=== PATIENT | female | born 1980 | race Caucasian/White ===

== ENCOUNTER 2020-10-08 19:49 | Observation (INO) | payer OTHER ==
[~2020-10-08 19:49] MED LIST: Iopamidol 370 76% 100 ML VIAL ONE
[2020-10-08 20:37] LABS: #Basophils 0.1 thou/uL (0.0-0.2); #Eosinphils 0.1 thou/uL (0.0-0.7); #Monocytes 0.7 thou/uL (0.11-0.59); #Neutrophils 4.7 thou/uL (1.40-6.50); %Eosinophils 1.3 % (0.0-10.0); %Lymphocytes 34.8 % (21.0-51.0); %Monocytes 8.5 % (0.0-10.0); %Neutrophils 54.5 % (42.0-75.0); Hemoglobin 13.8 g/dL (12.0-16.0); Mean Corpuscular HGB CONC 33.8 g/dL (32.0-36.0); Mean Corpuscular Hemoglobin 31.8 pg (27.0-31.0); Mean Corpuscular Volume 94.1 fL (78.0-98.0); Mean Platelet Volume 9.3 fL (7.4-10.4); Platelet Count 196 thou/uL (130-400); RBC Distribution Width 11.7 % (11.5-14.5); Red Blood Cell (RBC) Count 4.34 mill/uL (4.20-5.40); White Blood Cell (WBC) Count 8.7 thou/uL (4.8-10.8)
[2020-10-08 20:49] LABS: INR-International Normal Ratio 0.8; PTT 28.8 sec (22.9-36.1); Prothrombin Time 11.3 sec (12.0-14.7)
[2020-10-08 20:56] LABS: ALT (SGPT) 14 U/L (8-55); AST (SGOT) 14 U/L (5-34); Albumin 4.3 g/dL (3.5-5.0); Alkaline Phosphatase 48 U/L (40-110); Anion Gap 14 mmol/L (10-20); BUN (Urea Nitrogen) 11 mg/dL (7.0-18.7); Bilirubin, Total 0.3 mg/dL (0.2-1.2); Calc. Creatinine Clearance 0 mL/min (70-130); Carbon Dioxide 27 mmol/L (22-29); Chloride 104 mmol/L (98-107); Globulin 3.2 g/dL (2.4-3.5); Glucose 107 mg/dL (70-105); Potassium 3.8 mmol/L (3.5-5.1); Protein, Total 7.5 g/dL (6.0-8.3); Sodium 141 mmol/L (136-145)
[2020-10-08 22:18] LABS: Bilirubin Negative (Negative); Blood, Urine Negative (Negative); Clarity Clear (Clear); Glucose, Urine (Dipstick) Normal (Negative); Ketone, Urine Negative (Negative); Leukocyte Negative Leu/uL (Negative); Nitrite Negative (Negative); Protein, Urine (Dipstick) Negative (Neg-Trace); Urobilinogen Normal mg/dL (Less than 2)
[2020-10-08 22:19] LABS: Specific Gravity, Urine 1.059 (1.002-1.036)
--- NOTE | 2020-10-08 22:23 | CT ---
EXAM: Noncontrast CT head CT angiogram head and neck with IV contrast and 3-D reconstructions PROVIDED CLINICAL HISTORY: Left lower extremity numbness and weakness which started one day ago. Dizziness and lightheadedness. History of prior CVA. COMPARISON: None FINDINGS: Noncontrast CT head: There is no evidence of a hemorrhage, acute infarction, mass effect, or midline shift. The ventricula r system is normal in size, shape, and position. Visualized paranasal sinuses and mastoid air cells are clear. Calvarial structures have a normal appearance. There is curvilinear increased density seen in the posterior aspect of the right lobe. This could be related to hemorrhage or less likely mass. CTA head and neck: There is a normal arrangement of the great vessels at the aortic arch which are patent. The innominat e artery and right subclavian artery are patent. Portions of the left subclavian artery are obscured due to dense contrast in adjacent veins limiting adequate evaluation. There is mild atherosc lerotic plaque and narrowing involving the most proximal left subclavian artery. The bilateral common carotid arteries are patent. The left internal carotid artery is patent. The rig ht internal carotid artery demonstrates mild diffuse irregularity and narrowing with at least one area in the upper cervical ICA at the C2-3 level demonstrating findings possibly related to fibromusc ular dysplasia. Areas of narrowing on the right are moderate in severity. No critical stenosis is seen. The vertebral arteries are codominant and patent bilaterally. The basilar artery is patent. Bilateral posterior cerebral arteries are patent The bilateral anterior cerebral and middle cerebral arteries are patent. No intracranial aneurysm is appreciated. IMPRESSION: 1. Generalized diffuse narrowing of the extracranial right internal carotid artery with a segmental a isaías of alternating areas of slight dilatation and narrowing at the C2-3 level. Findings may be related to fibromuscular dysplasia. Vasculitis would be a differential consideration. 2. Patent left internal carotid artery. 3. No focal stenosis or branch occlusion is seen involving the ch[place] of [place] or vertebrobasilar sy stem. 4. No acute intracranial abnormality is demonstrated. 5. Increased density right lobe which could be related to hemorrhage or less likely a mass. 6. Above findings discussed with Dr. De La Rosa on 10/08/2020 2217 hours.
[2020-10-08 22:28] LABS: Medtox Reader # READER 4
[2020-10-08 22:29] LABS: Amphetamine Not Detected (NotDetected); Barbiturates Screen Not Detected (NotDetected); Benzodiazepine Screen Not Detected (NotDetected); Cocaine Metabolite Screen Not Detected (NotDetected); Medtox Control Line Valid? VALID (VALID); Methadone Not Detected (NotDetected); Methamphetamine Not Detected (NotDetected); Opiate Screen Not Detected (NotDetected); Oxycodone Screen Not Detected (NotDetected); Phencyclidine (PCP) Not Detected (NotDetected); THC/Cannabinoid Screen Not Detected (NotDetected); Tricyclic Screen Not Detected (NotDetected)
--- NOTE | 2020-10-08 22:29 | ULT ---
EXAM: Left lower extremity venous Doppler HISTORY: Left lower extremity pain and numbness. FINDINGS: Grayscale, color-flow, Doppler evaluation, spectral analysis of the left lower extremity venous struc tures is performed with 2-D imaging. The left common femoral, superficial femoral, popliteal, posterior tibial, proximal greater saphenous and profunda femoral veins are imaged. There is normal luminal compressibility, flow, and augmentation in the visualized deep venous structu res of the left lower extremity. IMPRESSION: No evidence of a deep vein thrombosis in the visualized deep venous structures left lower extremity.
[2020-10-08] MEDS ORDERED: Ketorolac Tromethamine 30 MG/ML VIAL ONE (22:58)
[2020-10-08] MEDS ORDERED: Nicotine 14 MG PATCH ONE (23:34)
[2020-10-09] MEDS ORDERED: Nicotine 21 MG PATCH TOP SCH (00:15)
[2020-10-09] MEDS ORDERED: Aspirin Chewable 81 MG TAB ONE (00:17)
[2020-10-09] MEDS ORDERED: Acetaminophen 325 MG TAB PO PRN (01:51)
[2020-10-09] MEDS ORDERED: Morphine 2 MG/ML VIAL SLOW IVP PRN (01:51)
[2020-10-09] MEDS ORDERED: Morphine 2 MG/ML VIAL ONE (01:59)
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
[2020-10-09 04:34] LABS: SARS-CoV-2 MS2 Positive; SARS-CoV-2 N Gene Negative; SARS-CoV-2 S Gene Negative; SARS-CoV-2 by NAA Not Detected (NotDetected); SARS-CoV-2 orf1ab Negative
[2020-10-09 04:46] LABS: Cardiac Risk 3.6 (Less than 4.5)
[2020-10-09 05:04] LABS: #Eosinphils 0.1 thou/uL (0.0-0.7); #Monocytes 0.7 thou/uL (0.11-0.59); %Basophils 0.5 % (0.0-1.0); %Eosinophils 1.5 % (0.0-10.0); %Lymphocytes 38.6 % (21.0-51.0); %Monocytes 8.8 % (0.0-10.0); %Neutrophils 50.7 % (42.0-75.0); Hemoglobin 12.8 g/dL (12.0-16.0); Mean Corpuscular HGB CONC 32.4 g/dL (32.0-36.0); Mean Corpuscular Hemoglobin 30.6 pg (27.0-31.0); Mean Corpuscular Volume 94.5 fL (78.0-98.0); Mean Platelet Volume 10.1 fL (7.4-10.4); Platelet Count 170 thou/uL (130-400); RBC Distribution Width 11.8 % (11.5-14.5); Red Blood Cell (RBC) Count 4.18 mill/uL (4.20-5.40); White Blood Cell (WBC) Count 7.9 thou/uL (4.8-10.8)
[2020-10-09] MEDS ORDERED: Acetaminophen/Codeine 30-300mg Tablet ONE ×2 (06:20→11:52)
[2020-10-09] MEDS: Acetaminophen/Codeine 30-300mg Tablet PO PRN ×4 (06:25→21:16)
[2020-10-09] MEDS ORDERED: Diazepam 5 MG TAB ONE ×2 (07:54→13:36)
[2020-10-09] MEDS ORDERED: Diazepam 5 MG TAB PO SCH (08:00)
[2020-10-09] MEDS ORDERED: Enoxaparin Sodium 40 MG/0.4 ML SYRINGE SC SCH (09:00)
--- NOTE | 2020-10-09 09:09 | CT ---
PRELIMINARY REPORT/[facility]/EMERGENCY AFTER HOURS PROCEDURE: Exam: Unenhanced CT lumbar spine History: Patient is a 39 yo F who started having some left leg pain yesterday and woke up this sivakumarnin g having trouble walking. She has not been able to walk all day and her left leg is sensitive to touc h. Comparison: None provided. Findings: Contrast is present within bilateral renal collecting systems. Recommend correlation with recent administration. The paraspinous soft tissues are within normal limits. Prevertebral body hei ghts are preserved. There is anatomic alignment. There is no acute osseous abnormality. Shallow di sc bulge L5-S1 is present. There is no significant stenosis. Remainder of levels are within normal limits. Impression: No acute osseous abnormality. Shallow disc bulge L5-S1. ELECTRONICALLY SIGNED BY: Antonia Jaimes MD Oct 09, 2020 3:45:54 AM MANUFACTURING ADVISOR This report is intended for review by the ordering physician only, in accordance of law. If you recei ve this report in error, please call [facility] at [phone]. FINAL REPORT CT LUMBAR SPINE WITHOUT CONTRAST: Vertebral bodies maintain normal height and alignment. Degenerative disk changes at L5-S1. Broad-ba sed bulge at L5-S1. Disk-osteophyte complex projects into the foraminal zone on the right at L5-S1 r esulting in foraminal narrowing. I am in agreement with the preliminary report. POS: AGW
--- NOTE | 2020-10-09 12:28 | CON ---
NEUROLOGY CONSULTATION DATE OF CONSULTATION: 10/09/2020 REASON FOR CONSULTATION: Stroke/left lower extremity weakness. HISTORY OF PRESENT ILLNESS: Ms. Carter is a 39-year-old female with medical history significant for seizure disorder, CVA with residual left-sided deficits, degenerative joint disease, presented with excruciating left leg pain when she woke up in the morning. She has residual deficits in the left upper extremity, but not worsening at this time. The patient denies nausea, vomiting, headache, chest pain, abdominal pain, double vision, problems with swallowing or speech, or worsening weakness in the left upper extremity. She noted that she was unable to walk throughout all the day. In the emergency room, CT angiogram was done which showed diffuse narrowing of the intracranial right internal carotid artery with segmental area of alternating slight dilatation and narrowing at the C2-C3 level related to fibromuscular dysplasia. The patient received Toradol and aspirin and nicotine patch and she was admitted for further evaluation. The patient also complained of pain in the lower back. She denies any urinary or fecal incontinence. REVIEW OF SYSTEMS: All systems reviewed and were negative except the pertinent positives and negatives mentioned in the HPI. HOME MEDICATIONS: See updated home medication reconciliation list. ACTIVE MEDICATIONS: Morphine and Nicotine. PAST MEDICAL HISTORY: Seizure disorder, chronic lower back pain, prior CVA. PAST SURGICAL HISTORY: Tubal ligation, D and C. SOCIAL HISTORY: The patient lives with family. She is a current smoker. Denies illegal drug abuse. She uses alcohol. ALERGIES: ASA PHYSICAL EXAMINATION: 130/70 18 88 General Appearance: awake alert Eye: PERRL, anicteric sclera ENT: normocephalic atraumatic, no oropharyngeal lesions Neck: supple, symmetric, no thyromegaly Heart: RRR, no murmur, no gallops, no rubs, normal peripheral pulses Respiratory: CTAB, no wheezes, no rales, no ronchi, normal chest expansion Gastrointestinal: soft, non-tender, non-distended, normal bowel sounds Extremities: no cyanosis, no clubbing, no edema Neurological: Mental status, the patient is alert and oriented to person, place, and time. Speech is clear. Cranial nerves 2 through 12 intact. Motor; muscle tone and bulk are normal. Strength 5/5 in the right upper and lower extremity, left upper extremity 4/5, left lower extremity 1/5. Exam is restricted secondary to pain. DATA REVIEWED: I reviewed the labs which are essentially unremarkable. Lab results: WBC 8.7 thou/uL (4.8-10.8) 10/08/20 20:24 Hgb 13.8 g/dL (12.0-16.0) 10/08/20 20:24 Hct 40.9 % (36.0-47.0) 10/08/20 20:24 MCV 94.1 fL (78.0-98.0) 10/08/20 20:24 Plt Count 196 thou/uL (130-400) 10/08/20 20:24 Neutrophils % 54.5 % (42.0-75.0) 10/08/20 20:24 Sodium 141 mmol/L (136-145) 10/08/20 20:24 Potassium 3.8 mmol/L (3.5-5.1) 10/08/20 20:24 Chloride 104 mmol/L (98-107) 10/08/20 20:24 Carbon Dioxide 27 mmol/L (22-29) 10/08/20 20:24 BUN 11 mg/dL (7.0-18.7) 10/08/20 20:24 Creatinine 0.73 mg/dL (0.6-1.1) 10/08/20 20:24 Glucose 107 mg/dL (70-105) H 10/08/20 20:24 Calcium 9.0 mg/dL (7.8-10.44) 10/08/20 20:24 Total Bilirubin 0.3 mg/dL (0.2-1.2) 10/08/20 20:24 AST 14 U/L (5-34) 10/08/20 20:24 ALT 14 U/L (8-55) 10/08/20 20:24 Alkaline Phosphatase 48 U/L (40-110) 10/08/20 20:24 Serum Total Protein 7.5 g/dL (6.0-8.3) 10/08/20 20:24 Albumin 4.3 g/dL (3.5-5.0) 10/08/20 20:24 Urine Ketones Negative mg/dL (Negative) 10/08/20 22:04 Urine Blood Negative (Negative) 10/08/20 22:04 Urine Nitrite Negative (Negative) 10/08/20 22:04 Ur Leukocyte Esterase Negative Tyrone/uL (Negative) 10/08/20 22:04 ASSESSMENT AND PLAN: Ms. Marie Carter is a 39-year-old female with medical history significant for prior CVA with residual left-sided deficits, history of breast lump, chronic lower back pain, presented with left lower extremity paresthesias, pain, and weakness. Consider MRI of the brain to rule out acute intracranial process. Consider MRI of the lumbar spine to rule out acute process. Neuro checks every 4 hours. Continue aspirin and high-intensity statin for secondary stroke prevention. If allergic to asa, consider plavix. Check hemoglobin A1c, fasting lipid panel, and TSH. CT head angiogram revealed generalized diffuse narrowing of intracranial right internal carotid artery with a segmental area of alternating areas of slight dilatation and narrowing at the C2-C3 level related to fibromuscular dysplasia with concern for vasculitis. Carotid dopplers and echo pending. Telemetry to rule out arrhythmias. PT/OT/Speech. Continue home medication. Continue pain control. Ultrasound report of the left lower extremity is negative for DVT. Continue medical management per primary team. We will continue to follow. Thank you for the consult. Job ID: [id number] MTDD
[2020-10-09] MEDS ORDERED: Clopidogrel Bisulfate 75 MG TAB PO SCH ×2 (15:15→21:00)
--- NOTE | 2020-10-09 15:35 | MRI ---
MRI BRAIN WITH AND WITHOUT CONTRAST: DATE: 10/09/2020 HISTORY: 39-year-old female with left lower extremity weakness and numbness, plus dizziness and lightheadednes s. History of prior CVA. TECHNIQUE: Multiplanar, multisequence MRI of the brain obtained pre and post IV injection of gadolinium based co ntrast agent. FINDINGS: The ventricles are normal in size and configuration. There is no midline shift or any other evidence of mass effect. There is no extra-axial fluid collection. There is an approximately 5 to 7 mm faint ill-defined blush of intra-axial enhancement located centrally in the pham, without associated signal abnormality on any other sequence, consistent with capillary telangiectasia. There is no intra-axial signal abnormality, other abnormal enhancement, mass, recent hemorrhage, or restricted di ffusion. No dural venous sinus thrombosis. There is a crescentic region of signal abnormality (there is hyperintense on FLAIR, isointense relative to brain parenchyma on T1 WI, and very hyperinte nse on T2 WI, occupying a significant portion of the right globe, which compresses and anteriorly displaces the right vitreous chamber. There is no associated abnormal enhancement.. IMPRESSION: 1) the brain is essentially normal. 2) evidence for right retinal detachment. Recommend ophthalmology consultation, unless the patient is already receiving ophthalmology care for this.
--- NOTE | 2020-10-09 15:36 | MRI ---
MRI LUMBAR SPINE WITH AND WITHOUT CONTRAST: Date: 10/09/2019 INDICATION: Left leg weakness. FINDINGS: Lumbar vertebra maintain normal height and alignment. Vertebral body signal appears normal. Disc spac es are maintained with mild loss of disc space at L5-S1. Degenerative disc signal changes at L4-5 and L5-S1. Disc spaces above L4 exhibit normal T2 hydration. No significant disc abnormality at L1-2, L2-3, or L3-4. There is facet arthrosis and hypertrophy at t hese levels without significant central canal or foraminal stenosis. L4-5: There is an annular fissure with mild diffuse disc bulge abutting and mildly flattening the an terior thecal sac. Facet arthrosis and mild hypertrophy. No significant central canal or foraminal st enosis. L5-S1: Diffuse disc bulge centrally and more pronounced to the right. This indents the anterior thec al sac and appears to slightly displace the traversing right S1 nerve root. Mild foraminal encroachme nt on the right due to asymmetric disc bulge and facet hypertrophy. IMPRESSION: 1. Annular fissure with broad based bulge at L4-5 as described. 2. Disc bulge centrally and to the right at L5-S1 with right foraminal zone encroachment and mild di splacement of the traversing right S1 nerve root. POS: AGW
[2020-10-09 15:44] VITALS: BMI 27.5
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
[2020-10-09] MEDS ORDERED: Atorvastatin Calcium 40 MG TAB PO SCH (21:00)
[2020-10-10] MEDS ORDERED: Nicotine 21 MG PATCH TOP SCH (04:15)
[2020-10-10] MEDS: Acetaminophen/Codeine 30-300mg Tablet PO PRN ×3 (04:48→14:26)
[2020-10-10 05:51] LABS: #Basophils 0.1 thou/uL (0.0-0.2); #Eosinphils 0.1 thou/uL (0.0-0.7); #Lymphocytes 2.3 thou/uL (1.20-3.40); #Monocytes 0.7 thou/uL (0.11-0.59); #Neutrophils 3.7 thou/uL (1.40-6.50); %Basophils 0.8 % (0.0-1.0); %Eosinophils 1.3 % (0.0-10.0); %Lymphocytes 33.9 % (21.0-51.0); %Monocytes 9.9 % (0.0-10.0); %Neutrophils 54.1 % (42.0-75.0); Hemoglobin 13.2 g/dL (12.0-16.0); Mean Corpuscular HGB CONC 32.4 g/dL (32.0-36.0); Mean Corpuscular Hemoglobin 30.6 pg (27.0-31.0); Mean Corpuscular Volume 94.4 fL (78.0-98.0); Mean Platelet Volume 9.5 fL (7.4-10.4); Platelet Count 163 thou/uL (130-400); RBC Distribution Width 11.7 % (11.5-14.5); Red Blood Cell (RBC) Count 4.32 mill/uL (4.20-5.40); White Blood Cell (WBC) Count 6.8 thou/uL (4.8-10.8)
[2020-10-10 06:11] LABS: Hemoglobin A1c 5.2 % (4.0-6.0)
[2020-10-10 06:13] LABS: Anion Gap 11 mmol/L (10-20); BUN (Urea Nitrogen) 15 mg/dL (7.0-18.7); CRP (Inflammatory) Less than 0.50 mg/dL (= or < 0.5); Calc. Creatinine Clearance 137 mL/min (70-130); Calcium 8.9 mg/dL (7.8-10.44); Carbon Dioxide 26 mmol/L (22-29); Chloride 107 mmol/L (98-107); Glucose 91 mg/dL (70-105); Potassium 4.3 mmol/L (3.5-5.1); Sodium 140 mmol/L (136-145)
[2020-10-10 06:36] LABS: Thyroid Stimulating Hormone 0.8637 uIU/mL (0.35-4.94)
[2020-10-10] MEDS ORDERED: Clopidogrel Bisulfate 75 MG TAB PO SCH (09:00)
[2020-10-10] MEDS ORDERED: Enoxaparin Sodium 40 MG/0.4 ML SYRINGE SC SCH (09:00)
[2020-10-10 11:28] VITALS: BP 99/51; TEMP 97.8
--- NOTE | 2020-10-11 10:47 | CT ---
EXAM: Noncontrast CT head CT angiogram head and neck with IV contrast and 3-D reconstructions PROVIDED CLINICAL HISTORY: Left lower extremity numbness and weakness which started one day ago. Dizziness and lightheadedness. History of prior CVA. COMPARISON: None FINDINGS: Noncontrast CT head: There is no evidence of a hemorrhage, acute infarction, mass effect, or midline shift. The ventricula r system is normal in size, shape, and position. Visualized paranasal sinuses and mastoid air cells are clear. Calvarial structures have a normal appearance. There is curvilinear increased density seen in the posterior aspect of the right globe. This could be related to hemorrhage or less likely mass. CTA head and neck: There is a normal arrangement of the great vessels at the aortic arch which are patent. The innominat e artery and right subclavian artery are patent. Portions of the left subclavian artery are obscured due to dense contrast in adjacent veins limiting adequate evaluation. There is mild atherosc lerotic plaque and narrowing involving the most proximal left subclavian artery. The bilateral common carotid arteries are patent. The left internal carotid artery is patent. The rig ht internal carotid artery demonstrates mild diffuse irregularity and narrowing with at least one area in the upper cervical ICA at the C2-3 level demonstrating findings possibly related to fibromusc ular dysplasia. Areas of narrowing on the right are moderate in severity. No critical stenosis is seen. The vertebral arteries are codominant and patent bilaterally. The basilar artery is patent. Bilateral posterior cerebral arteries are patent The bilateral anterior cerebral and middle cerebral arteries are patent. No intracranial aneurysm is appreciated. IMPRESSION: 1. Generalized diffuse narrowing of the extracranial right internal carotid artery with a short segme nt area of alternating slight dilatation and narrowing at the C2-3 level. Findings may be related to fibromuscular dysplasia. Vasculitis would be a differential consideration. 2. Patent left internal carotid artery. 3. No focal stenosis or branch occlusion is seen involving the [place] or vertebrobasilar sy stem. 4. No acute intracranial abnormality is demonstrated. 5. Increased density right globe which could be related to hemorrhage or less likely a mass. 6. Above findings discussed with Dr. De La Rosa on 10/08/2020 2217 hours. Transcribed Date/Time: 10/11/2020 10:47 AM
== END 2020-10-10 16:14 | disposition home or self-care (01) ==
LOC: ERS 19:49 → ERHOLD 23:52 → 2SE 10-09 15:35
PROVIDERS: ADMIT Student in an Organized Health Care Education/Training Program; ATTEND Internal Medicine
DX: R53.1 Weakness (principal); G89.29 Other chronic pain; M54.5 Low back pain; G40.909 Epilepsy, unspecified, not intractable, without status epilepticus; F17.200 Nicotine dependence, unspecified, uncomplicated; H54.40 Blindness, one eye, unspecified eye; M47.816 Spondylosis without myelopathy or radiculopathy, lumbar region; Z79.899 Other long term (current) drug therapy; Z86.73 Personal history of transient ischemic attack (TIA), and cerebral infarction without residual deficits; Z88.6 Allergy status to analgesic agent; Z20.828 Contact with and (suspected) exposure to other viral communicable diseases
CPT/HCPCS: 36415; 70496; 70498; 70553; 72131; 72158; 80048; 80053; 80061; 80306; 81003; 82607; 82746; 83036; 84443; 85007; 85025; 85027; 85610; 85652; 85730; 86140; 87635; 93005; 93306; 94760; 96372; 96374; 96375; G0378; J1650; J1885; J2270; Q9967; U0003

== ENCOUNTER 2020-12-16 06:02 | Emergency (ER) | payer OTHER ==
[2020-12-16] MEDS ORDERED: Ketorolac Tromethamine 30 MG/ML VIAL ONE (06:20)
== END 2020-12-16 06:45 | disposition home or self-care (01) ==
LOC: ERS 06:02
DX: K11.20 Sialoadenitis, unspecified (principal); E78.00 Pure hypercholesterolemia, unspecified; F17.210 Nicotine dependence, cigarettes, uncomplicated; Z79.891 Long term (current) use of opiate analgesic; Z86.73 Personal history of transient ischemic attack (TIA), and cerebral infarction without residual deficits; Z79.899 Other long term (current) drug therapy
CPT/HCPCS: 96372; 99283; J1885

== ENCOUNTER 2021-06-10 15:37 | Observation (INO) | payer OTHER ==
[~2021-06-10 15:37] MED LIST changes: -Iopamidol 370 76% 100 ML VIAL ONE; +Iopamidol-370 76% 500 ML 1 ML ONE
[2021-06-10 15:58] LABS: #Eosinphils 0.1 thou/uL (0.0-0.7); #Lymphocytes 2.9 thou/uL (1.20-3.40); #Monocytes 0.7 thou/uL (0.11-0.59); #Neutrophils 4.8 thou/uL (1.40-6.50); %Basophils 0.3 % (0.0-1.0); %Eosinophils 1.3 % (0.0-10.0); %Lymphocytes 33.8 % (21.0-51.0); %Monocytes 8.3 % (0.0-10.0); %Neutrophils 56.4 % (42.0-75.0); Hemoglobin 11.5 g/dL (12.0-16.0); Mean Corpuscular HGB CONC 33.3 g/dL (32.0-36.0); Mean Corpuscular Hemoglobin 28.6 pg (27.0-31.0); Mean Corpuscular Volume 85.8 fL (78.0-98.0); Mean Platelet Volume 8.5 fL (7.4-10.4); Platelet Count 243 thou/uL (130-400); RBC Distribution Width 13.2 % (11.5-14.5); Red Blood Cell (RBC) Count 4.03 mill/uL (4.20-5.40); White Blood Cell (WBC) Count 8.5 thou/uL (4.8-10.8)
[2021-06-10] MEDS ORDERED: Lorazepam 2 MG/ML VIAL ONE (16:07)
[2021-06-10 16:11] LABS: PTT 28.4 sec (22.9-36.1); Prothrombin Time 12.1 sec (12.0-14.7)
[2021-06-10 16:13] LABS: INR-International Normal Ratio 0.9
[2021-06-10 16:19] LABS: ALT (SGPT) 12 U/L (8-55); AST (SGOT) 13 U/L (5-34); Albumin 4.3 g/dL (3.5-5.0); Alkaline Phosphatase 47 U/L (40-110); Anion Gap 11 mmol/L (10-20); BUN (Urea Nitrogen) 7 mg/dL (7.0-18.7); Bilirubin, Total 0.2 mg/dL (0.2-1.2); Calc. Creatinine Clearance 0 mL/min (70-130); Calcium 9.2 mg/dL (7.8-10.44); Carbon Dioxide 24 mmol/L (22-29); Chloride 105 mmol/L (98-107); Globulin 2.9 g/dL (2.4-3.5); Glucose 104 mg/dL (70-105); Potassium 4.1 mmol/L (3.5-5.1); Protein, Total 7.2 g/dL (6.0-8.3); Sodium 136 mmol/L (136-145)
[2021-06-10] MEDS ORDERED: traMADol HCl 50 MG TAB ONE (18:00)
[2021-06-10] MEDS ORDERED: Nicotine 14 MG PATCH TOP SCH (18:45)
[2021-06-10 19:18] LABS: SARS-CoV-2 NAA Rapid Test Not Detected (NotDetected)
[2021-06-10] MEDS ORDERED: Senokot S 8.6-50 MG TAB PO PRN (19:30)
[2021-06-10] MEDS ORDERED: Ondansetron PF 4 MG/2 ML Vial IVP PRN (19:30)
[2021-06-10] MEDS ORDERED: Acetaminophen 325 MG TAB PO PRN (19:30)
[2021-06-10] MEDS ORDERED: hydrALAZINE 20 MG/ML VIAL SLOW IVP PRN (19:36)
[2021-06-10] MEDS ORDERED: Melatonin 3 MG TAB PO PRN (19:41)
[2021-06-10] MEDS ORDERED: Lorazepam 2 MG/ML VIAL SLOW IVP PRN (20:32)
[2021-06-10] MEDS: HYDROcodone/Acetaminophen 5/325 mg Tablet PO PRN (21:25)
[2021-06-10 22:17] VITALS: BMI 30.2
[2021-06-11] MEDS ORDERED: rOPINIRole HCl 2 MG TAB PO SCH ×2 (01:00→21:00)
[2021-06-11 08:17] LABS: #Basophils 0.1 thou/uL (0.0-0.2); #Eosinphils 0.1 thou/uL (0.0-0.7); #Lymphocytes 2.5 thou/uL (1.20-3.40); #Monocytes 0.6 thou/uL (0.11-0.59); #Neutrophils 5.1 thou/uL (1.40-6.50); %Basophils 0.8 % (0.0-1.0); %Eosinophils 1.1 % (0.0-10.0); %Lymphocytes 30.3 % (21.0-51.0); %Monocytes 7.4 % (0.0-10.0); %Neutrophils 60.5 % (42.0-75.0); Hemoglobin 11.1 g/dL (12.0-16.0); Mean Corpuscular HGB CONC 32.7 g/dL (32.0-36.0); Mean Corpuscular Hemoglobin 28.1 pg (27.0-31.0); Mean Corpuscular Volume 86.1 fL (78.0-98.0); Mean Platelet Volume 8.6 fL (7.4-10.4); Platelet Count 222 thou/uL (130-400); RBC Distribution Width 13.2 % (11.5-14.5); Red Blood Cell (RBC) Count 3.93 mill/uL (4.20-5.40); White Blood Cell (WBC) Count 8.4 thou/uL (4.8-10.8)
[2021-06-11] MEDS: HYDROcodone/Acetaminophen 5/325 mg Tablet PO PRN ×2 (08:22→12:22)
[2021-06-11 08:30] LABS: Phosphorus 3.1 mg/dL (2.3-4.7)
[2021-06-11 08:39] LABS: ALT (SGPT) 13 U/L (8-55); AST (SGOT) 15 U/L (5-34); Albumin 3.8 g/dL (3.5-5.0); Alkaline Phosphatase 33 U/L (40-110); Anion Gap 9 mmol/L (10-20); BUN (Urea Nitrogen) 6 mg/dL (7.0-18.7); Bilirubin, Total 0.4 mg/dL (0.2-1.2); Calc. Creatinine Clearance 138 mL/min (70-130); Calcium 8.7 mg/dL (7.8-10.44); Carbon Dioxide 25 mmol/L (22-29); Cardiac Risk 3.7 (Less than 4.5); Chloride 106 mmol/L (98-107); Cholesterol 189 mg/dl (< 200 Desired); Globulin 2.6 g/dL (2.4-3.5); Glucose 90 mg/dL (70-105); HDL Cholesterol 51 mg/dL (>60 Neg Risk); LDL Cholesterol, Calculated 121 mg/dL; Magnesium 1.8 mg/dL (1.6-2.6); Potassium 3.8 mmol/L (3.5-5.1); Protein, Total 6.4 g/dL (6.0-8.3); Sodium 136 mmol/L (136-145); Triglycerides 83 mg/dL (Less than 150)
[2021-06-11 12:30] VITALS: TEMP 98.2
[2021-06-11 15:07] VITALS: BP 111/68
[2021-06-11] MEDS ORDERED: levETIRAcetam 500 MG TAB PO SCH ×2 (21:00)
== END 2021-06-11 16:13 | disposition home or self-care (01) ==
LOC: ERS 15:37 → INTOOBSV 18:09 → 3SE 18:09
PROVIDERS: ADMIT Family Medicine; ATTEND Family Medicine
DX: I69.954 Hemiplegia and hemiparesis following unspecified cerebrovascular disease affecting left non-dominant side (principal); I10 Essential (primary) hypertension; E78.5 Hyperlipidemia, unspecified; E78.00 Pure hypercholesterolemia, unspecified; F17.210 Nicotine dependence, cigarettes, uncomplicated; G25.81 Restless legs syndrome; H33.21 Serous retinal detachment, right eye; K29.70 Gastritis, unspecified, without bleeding; Z20.822 Contact with and (suspected) exposure to COVID-19; Z88.6 Allergy status to analgesic agent; Z79.899 Other long term (current) drug therapy; Z95.5 Presence of coronary angioplasty implant and graft; Z53.29 Procedure and treatment not carried out because of patient's decision for other reasons
CPT/HCPCS: 36415; 36416; 70450; 70496; 70498; 80053; 80061; 83735; 84100; 84484; 85025; 85610; 85730; 86850; 86900; 86901; 93005; 95712; 95819; 95957; 96374; G0378; J2060; J2997; Q9967; U0002

== ENCOUNTER 2021-07-27 13:25 | Inpatient (IN) | payer OTHER ==
[2021-07-27 15:41] LABS: #Eosinphils 0.1 thou/uL (0.0-0.7); #Lymphocytes 2.1 thou/uL (1.20-3.40); #Monocytes 0.6 thou/uL (0.11-0.59); #Neutrophils 5.9 thou/uL (1.40-6.50); %Basophils 0.4 % (0.0-1.0); %Eosinophils 0.7 % (0.0-10.0); %Lymphocytes 24.7 % (21.0-51.0); %Monocytes 6.7 % (0.0-10.0); %Neutrophils 67.5 % (42.0-75.0); Hemoglobin 11.8 g/dL (12.0-16.0); Mean Corpuscular HGB CONC 33.1 g/dL (32.0-36.0); Mean Corpuscular Hemoglobin 28.3 pg (27.0-31.0); Mean Corpuscular Volume 85.4 fL (78.0-98.0); Mean Platelet Volume 8.7 fL (7.4-10.4); Platelet Count 194 thou/uL (130-400); RBC Distribution Width 13.3 % (11.5-14.5); Red Blood Cell (RBC) Count 4.19 mill/uL (4.20-5.40); White Blood Cell (WBC) Count 8.7 thou/uL (4.8-10.8)
[2021-07-27 15:54] LABS: INR-International Normal Ratio 0.9; Prothrombin Time 12.5 sec (12.0-14.7)
[2021-07-27 15:55] LABS: PTT 28.3 sec (22.9-36.1)
[2021-07-27 16:06] LABS: ALT (SGPT) 13 U/L (8-55); AST (SGOT) 17 U/L (5-34); Albumin 4.3 g/dL (3.5-5.0); Alkaline Phosphatase 40 U/L (40-110); Anion Gap 11 mmol/L (10-20); BUN (Urea Nitrogen) 5 mg/dL (7.0-18.7); Bilirubin, Total 0.4 mg/dL (0.2-1.2); Calc. Creatinine Clearance 0 mL/min (70-130); Carbon Dioxide 25 mmol/L (22-29); Chloride 105 mmol/L (98-107); Globulin 2.6 g/dL (2.4-3.5); Glucose 83 mg/dL (70-105); Potassium 4.4 mmol/L (3.5-5.1); Protein, Total 6.9 g/dL (6.0-8.3); Sodium 137 mmol/L (136-145)
[2021-07-27 16:23] LABS: Bilirubin Negative (Negative); Blood, Urine Negative (Negative); Clarity Clear (Clear); Glucose, Urine (Dipstick) Normal (Negative); Ketone, Urine Negative (Negative); Leukocyte Negative Leu/uL (Negative); Nitrite Negative (Negative); Protein, Urine (Dipstick) Negative (Neg-Trace); Specific Gravity, Urine 1.048 (1.002-1.036); Urobilinogen Normal mg/dL (Less than 2); pH, Urine 6.5 (5.0-9.0)
[2021-07-27] MEDS ORDERED: Orphenadrine Citrate 60 MG/2 ML VIAL IM SCH (17:15)
[2021-07-27] MEDS ORDERED: Sodium Chloride 0.9% 1,000 ML IV SCH (17:15)
[2021-07-27] MEDS ORDERED: hydrALAZINE 20 MG/ML VIAL SLOW IVP PRN (18:02)
[2021-07-27] MEDS ORDERED: Acetaminophen/Codeine 30-300mg Tablet PO PRN (18:08)
[2021-07-27] MEDS ORDERED: Acetaminophen 325 MG TAB PO PRN (18:09)
[2021-07-27] MEDS ORDERED: Ondansetron ODT 4 MG TAB PO PRN (18:09)
[2021-07-27 19:37] LABS: Troponin I Less than 0.010 ng/mL (< 0.028)
[2021-07-27] MEDS ORDERED: Acetaminophen/Codeine 30-300mg Tablet ONE (20:00)
[2021-07-27] MEDS ORDERED: Clopidogrel Bisulfate 75 MG TAB PO SCH (21:00)
[2021-07-27] MEDS: rOPINIRole HCl 2 MG TAB PO SCH (21:43)
[2021-07-27] MEDS: levETIRAcetam 500 MG TAB PO SCH (21:44)
[2021-07-27] MEDS: Atorvastatin Calcium 40 MG TAB PO SCH (21:44)
[2021-07-27] MEDS: Nicotine 14 MG PATCH TD SCH (21:46)
[2021-07-27 22:13] LABS: Amphetamine Not Detected (NotDetected); Barbiturates Screen Not Detected (NotDetected); Benzodiazepine Screen Not Detected (NotDetected); Cocaine Metabolite Screen Not Detected (NotDetected); Methadone Not Detected (NotDetected); Methamphetamine Not Detected (NotDetected); Opiate Screen Detected (NotDetected); Oxycodone Screen Not Detected (NotDetected); Phencyclidine (PCP) Not Detected (NotDetected); THC/Cannabinoid Screen Not Detected (NotDetected); Tricyclic Screen Not Detected (NotDetected)
[2021-07-27] MEDS: Latanoprost 0.005% Ophth Soln 2.5 ml Bottle L EYE SCH (22:13)
[2021-07-27 22:36] LABS: Troponin I Less than 0.010 ng/mL (< 0.028)
[2021-07-27 23:19] VITALS: BMI 30.2
[2021-07-28] MEDS ORDERED: Clopidogrel Bisulfate 75 MG TAB PO SCH (09:00)
[2021-07-28] MEDS ORDERED: FLU VACC QS2021-22(6MOS UP)/PF 60 MCG/0.5 ML SYRINGE IM ONE (09:00)
[2021-07-28 09:15] LABS: #Eosinphils 0.1 thou/uL (0.0-0.7); #Lymphocytes 1.8 thou/uL (1.20-3.40); #Monocytes 0.5 thou/uL (0.11-0.59); #Neutrophils 6.4 thou/uL (1.40-6.50); %Basophils 0.2 % (0.0-1.0); %Eosinophils 0.8 % (0.0-10.0); %Lymphocytes 20.3 % (21.0-51.0); %Monocytes 6.1 % (0.0-10.0); %Neutrophils 72.6 % (42.0-75.0); Hemoglobin 11.5 g/dL (12.0-16.0); Mean Corpuscular HGB CONC 32.7 g/dL (32.0-36.0); Mean Corpuscular Hemoglobin 27.8 pg (27.0-31.0); Mean Corpuscular Volume 85.2 fL (78.0-98.0); Platelet Count 192 thou/uL (130-400); RBC Distribution Width 13.3 % (11.5-14.5); Red Blood Cell (RBC) Count 4.14 mill/uL (4.20-5.40); White Blood Cell (WBC) Count 8.9 thou/uL (4.8-10.8)
[2021-07-28 09:27] LABS: BHCG - Serum Negative (NEGATIVE); Pregs Control Background? CLEAR/WHITE (CLR/WHITE); Pregs Control Bar Appear? YES (CONTROL BAR)
[2021-07-28 09:30] LABS: Anion Gap 14 mmol/L (10-20); BUN (Urea Nitrogen) 6 mg/dL (7.0-18.7); Calc. Creatinine Clearance 128 mL/min (70-130); Calcium 9.1 mg/dL (7.8-10.44); Carbon Dioxide 20 mmol/L (22-29); Cardiac Risk 3.9 (Less than 4.5); Chloride 107 mmol/L (98-107); Cholesterol 182 mg/dl (< 200 Desired); Glucose 129 mg/dL (70-105); HDL Cholesterol 47 mg/dL (>60 Neg Risk); LDL Cholesterol, Calculated 118 mg/dL; Magnesium 1.8 mg/dL (1.6-2.6); Potassium 4.1 mmol/L (3.5-5.1); Sodium 137 mmol/L (136-145); Triglycerides 86 mg/dL (Less than 150)
[2021-07-28] MEDS: levETIRAcetam 500 MG TAB PO SCH ×2 (09:48→20:14)
[2021-07-28] MEDS: Clopidogrel Bisulfate 75 MG TAB PO SCH (09:48)
[2021-07-28 09:57] LABS: Syphilis Antibody Nonreactive (Nonreactive); Syphilis Antibody Index 0.02 S/CO (<1.00 Non-Reactive)
[2021-07-28 09:59] LABS: HBCM Index 0.06 S/CO (0-0.79); Hep A IgM AB Non-Reactive (NonReactive); Hep A IgM S/CO 0.16 S/CO (0-0.79); Hep C IgG Ab Non-Reactive (NonReactive); Hep C Index 0.07 S/CO (0-0.79); Hepatitis B Core IgM Abs Non-Reactive (NonReactive)
[2021-07-28] MEDS ORDERED: Lorazepam 1 MG TAB PO PRN (11:03)
[2021-07-28] MEDS ORDERED: Electrolyte Replacement Protocol 1 EACH FS SCH (11:15)
[2021-07-28 11:17] LABS: Hep B Surf Ag Reflx Confirmation S/CO (NonReactive)
[2021-07-28 11:18] LABS: HBSAg Index 11.92 S/CO (0-0.99)
[2021-07-28] MEDS ORDERED: Magnevist 469MG/ML 20 ML VIAL ONE ×2 (11:27)
[2021-07-28] MEDS ORDERED: Magnesium 2 GM/50 ML 2 GM in Premix Bag 1 BAG IVPB SCH (11:45)
[2021-07-28] MEDS: Acetaminophen/Codeine 30-300mg Tablet PO PRN ×2 (14:29→21:53)
[2021-07-28 16:24] LABS: SARS-CoV-2 PCR NAA for Saliva Not Detected (NotDetected)
[2021-07-28] MEDS ORDERED: Cyanocobalamin 1000 MCG/ML VIAL IM SCH (19:15)
[2021-07-28] MEDS: rOPINIRole HCl 2 MG TAB PO SCH (20:14)
[2021-07-28] MEDS: Latanoprost 0.005% Ophth Soln 2.5 ml Bottle L EYE SCH (20:15)
[2021-07-28] MEDS: Nicotine 14 MG PATCH TD SCH (20:16)
[2021-07-28] MEDS: Atorvastatin Calcium 40 MG TAB PO SCH (20:16)
[2021-07-29] MEDS: Acetaminophen/Codeine 30-300mg Tablet PO PRN (04:59)
[2021-07-29 07:34] VITALS: TEMP 98.1
[2021-07-29] MEDS: Clopidogrel Bisulfate 75 MG TAB PO SCH (08:44)
[2021-07-29] MEDS: levETIRAcetam 500 MG TAB PO SCH (08:44)
[2021-07-29] MEDS ORDERED: Cyanocobalamin (Vitamin B-12) 1,000 MCG TAB PO SCH (09:00)
[2021-07-29 09:14] VITALS: BP 119/50
[2021-07-29 12:37] LABS: Hep B Surface AG-Rflx Sendout Negative (Negative)
[2021-07-29 16:56] LABS: ANA Symphony (Qualitative) Negative (Negative); ANA Symphony (Quantitative) 0.1 Ratio (< 0.7 Negative); dsDNA IgG Antibody Less than 0.5 IU/mL (<10 Negative)
[2021-07-29] MEDS ORDERED: Nicotine 14 MG PATCH TD PRN (20:00)
== END 2021-07-29 11:55 | disposition home or self-care (01) | DRG 300 ==
LOC: ERS 13:25 → 3SE 17:13
PROVIDERS: ADMIT Internal Medicine; ATTEND Internal Medicine
DX: I78.8 Other diseases of capillaries (principal); I69.954 Hemiplegia and hemiparesis following unspecified cerebrovascular disease affecting left non-dominant side; M48.02 Spinal stenosis, cervical region; G40.909 Epilepsy, unspecified, not intractable, without status epilepticus; Z20.822 Contact with and (suspected) exposure to COVID-19; F17.210 Nicotine dependence, cigarettes, uncomplicated; G25.81 Restless legs syndrome; H40.9 Unspecified glaucoma; Z98.51 Tubal ligation status; E78.5 Hyperlipidemia, unspecified; H54.40 Blindness, one eye, unspecified eye; G89.29 Other chronic pain; E83.42 Hypomagnesemia; Z88.8 Allergy status to other drugs, medicaments and biological substances; Z79.899 Other long term (current) drug therapy; Z79.01 Long term (current) use of anticoagulants
CPT/HCPCS: 36415; 36416; 70450; 70496; 70498; 70553; 71045; 72156; 80048; 80053; 80061; 80074; 80306; 81003; 82550; 82595; 82607; 82746; 83735; 84146; 84443; 84484; 84703; 85025; 85610; 85652; 85730; 86038; 86225; 86780; 87340; 93005; 93306; 95712; 95816; 95819; 95957; 96372; A9579; J2360; J3420; J3475; Q9967; U0003; U0005

== ENCOUNTER 2021-09-10 19:32 | Observation (INO) | payer OTHER ==
[2021-09-10 20:11] LABS: #Eosinphils 0.1 thou/uL (0.0-0.7); #Lymphocytes 2.8 thou/uL (1.20-3.40); #Monocytes 0.6 thou/uL (0.11-0.59); #Neutrophils 4.4 thou/uL (1.40-6.50); %Basophils 0.4 % (0.0-1.0); %Eosinophils 1.8 % (0.0-10.0); %Lymphocytes 35.1 % (21.0-51.0); %Monocytes 7.8 % (0.0-10.0); %Neutrophils 54.9 % (42.0-75.0); Hemoglobin 10.8 g/dL (12.0-16.0); Mean Corpuscular HGB CONC 33.1 g/dL (32.0-36.0); Mean Corpuscular Hemoglobin 27.5 pg (27.0-31.0); Mean Corpuscular Volume 83.2 fL (78.0-98.0); Mean Platelet Volume 8.1 fL (7.4-10.4); Platelet Count 232 thou/uL (130-400); RBC Distribution Width 13.3 % (11.5-14.5); Red Blood Cell (RBC) Count 3.94 mill/uL (4.20-5.40); White Blood Cell (WBC) Count 7.9 thou/uL (4.8-10.8)
[2021-09-10 20:30] LABS: ALT (SGPT) 15 U/L (8-55); AST (SGOT) 17 U/L (5-34); Albumin 4.4 g/dL (3.5-5.0); Alkaline Phosphatase 50 U/L (40-110); Anion Gap 15 mmol/L (10-20); BUN (Urea Nitrogen) 6 mg/dL (7.0-18.7); Bilirubin, Total 0.2 mg/dL (0.2-1.2); Calc. Creatinine Clearance 0 mL/min (70-130); Calcium 8.9 mg/dL (7.8-10.44); Carbon Dioxide 21 mmol/L (22-29); Chloride 107 mmol/L (98-107); Globulin 3.3 g/dL (2.4-3.5); Glucose 113 mg/dL (70-105); Potassium 3.9 mmol/L (3.5-5.1); Protein, Total 7.7 g/dL (6.0-8.3); Sodium 139 mmol/L (136-145)
[2021-09-10] MEDS ORDERED: Fentanyl 100 MCG/2 ML VIAL ONE (22:01)
[2021-09-10] MEDS ORDERED: Lorazepam 2 MG/ML VIAL ONE (22:09)
[2021-09-10] MEDS ORDERED: Acetaminophen 325 MG TAB ONE (23:54)
[2021-09-11] MEDS ORDERED: Acetaminophen 325 MG TAB PO PRN (02:29)
[2021-09-11] MEDS ORDERED: Ondansetron PF 4 MG/2 ML Vial IVP PRN (02:29)
[2021-09-11] MEDS ORDERED: hydrALAZINE 20 MG/ML VIAL SLOW IVP PRN (02:29)
[2021-09-11] MEDS ORDERED: Acetaminophen/Codeine 30-300mg Tablet PO PRN (02:32)
[2021-09-11] MEDS ORDERED: Lorazepam 2 MG/ML VIAL SLOW IVP PRN ×2 (02:37→11:52)
[2021-09-11] MEDS ORDERED: clonazePAM 1 MG TAB PO SCH ×2 (03:00→21:00)
[2021-09-11] MEDS ORDERED: Clopidogrel Bisulfate 75 MG TAB PO SCH (03:00)
[2021-09-11] MEDS ORDERED: clonazePAM 1 MG TAB ONE (03:07)
[2021-09-11] MEDS ORDERED: Clopidogrel Bisulfate 75 MG TAB ONE (03:08)
[2021-09-11] MEDS ORDERED: Sodium Chloride 0.9% 500 ML IV SCH (04:45)
[2021-09-11 06:45] LABS: #Eosinphils 0.1 thou/uL (0.0-0.7); #Lymphocytes 2.6 thou/uL (1.20-3.40); #Monocytes 0.7 thou/uL (0.11-0.59); #Neutrophils 4.2 thou/uL (1.40-6.50); %Basophils 0.3 % (0.0-1.0); %Eosinophils 1.8 % (0.0-10.0); %Lymphocytes 33.8 % (21.0-51.0); %Monocytes 8.9 % (0.0-10.0); %Neutrophils 55.1 % (42.0-75.0); Hemoglobin 9.8 g/dL (12.0-16.0); Mean Corpuscular HGB CONC 32.3 g/dL (32.0-36.0); Mean Corpuscular Hemoglobin 27.2 pg (27.0-31.0); Mean Corpuscular Volume 84.4 fL (78.0-98.0); Mean Platelet Volume 8.1 fL (7.4-10.4); Platelet Count 198 thou/uL (130-400); RBC Distribution Width 13.3 % (11.5-14.5); Red Blood Cell (RBC) Count 3.61 mill/uL (4.20-5.40); White Blood Cell (WBC) Count 7.7 thou/uL (4.8-10.8)
[2021-09-11 06:59] LABS: Anion Gap 10 mmol/L (10-20); BUN (Urea Nitrogen) 6 mg/dL (7.0-18.7); Calc. Creatinine Clearance 0 mL/min (70-130); Calcium 8.5 mg/dL (7.8-10.44); Carbon Dioxide 25 mmol/L (22-29); Chloride 108 mmol/L (98-107); Cholesterol 201 mg/dl (< 200 Desired); Glucose 106 mg/dL (70-105); HDL Cholesterol 40 mg/dL (>60 Neg Risk); LDL Cholesterol, Calculated 130 mg/dL; Potassium 3.5 mmol/L (3.5-5.1); Sodium 139 mmol/L (136-145); Triglycerides 155 mg/dL (Less than 150)
[2021-09-11 07:04] LABS: SARS-CoV-2 NAA Rapid Test Not Detected (NotDetected)
[2021-09-11] MEDS ORDERED: Nicotine 14 MG PATCH TD SCH (09:00)
[2021-09-11] MEDS ORDERED: Cyanocobalamin (Vitamin B-12) 1,000 MCG TAB PO SCH (09:00)
[2021-09-11] MEDS ORDERED: Lorazepam 1 MG TAB ONE (10:21)
[2021-09-11] MEDS: Lorazepam 1 MG TAB PO PRN ×2 (10:24→11:08)
[2021-09-11] MEDS ORDERED: FLU VACC QS2021-22(6MOS UP)/PF 60 MCG/0.5 ML SYRINGE IM ONE (12:30)
[2021-09-11] MEDS ORDERED: Nicotine 14 MG PATCH ONE (12:58)
[2021-09-11] MEDS ORDERED: Acetaminophen/Codeine 30-300mg Tablet ONE (13:00)
[2021-09-11 15:09] VITALS: BP 111/45; TEMP 97.9
[2021-09-11] MEDS ORDERED: rOPINIRole HCl 2 MG TAB PO SCH (21:00)
[2021-09-11] MEDS ORDERED: Latanoprost 0.005% Ophth Soln 2.5 ml Bottle L EYE SCH (21:00)
[2021-09-12] MEDS ORDERED: Clopidogrel Bisulfate 75 MG TAB PO SCH (09:00)
== END 2021-09-11 17:05 | disposition home or self-care (01) ==
LOC: ERS 19:32 → ERHOLD 23:31
PROVIDERS: ADMIT Student in an Organized Health Care Education/Training Program; ATTEND Physician Assistant Medical
DX: I63.9 Cerebral infarction, unspecified (principal); G81.91 Hemiplegia, unspecified affecting right dominant side; R47.1 Dysarthria and anarthria; H40.9 Unspecified glaucoma; H54.7 Unspecified visual loss; G25.81 Restless legs syndrome; G40.909 Epilepsy, unspecified, not intractable, without status epilepticus; I77.6 Arteritis, unspecified; K21.9 Gastro-esophageal reflux disease without esophagitis; Z20.822 Contact with and (suspected) exposure to COVID-19; E78.5 Hyperlipidemia, unspecified; Z79.899 Other long term (current) drug therapy; Z88.6 Allergy status to analgesic agent; Z99.3 Dependence on wheelchair
CPT/HCPCS: 36415; 36416; 70450; 70551; 71045; 71275; 74174; 80048; 80053; 80061; 84484; 85025; 85379; 93005; 94760; 96374; 96375; G0378; J2060; J3010; J7030; Q9967; U0002

== ENCOUNTER 2021-09-13 21:11 | Observation (INO) | payer OTHER ==
[2021-09-13 21:44] LABS: #Basophils 0.1 thou/uL (0.0-0.2); #Eosinphils 0.1 thou/uL (0.0-0.7); #Lymphocytes 2.9 thou/uL (1.20-3.40); #Monocytes 0.7 thou/uL (0.11-0.59); #Neutrophils 4.7 thou/uL (1.40-6.50); %Eosinophils 1.1 % (0.0-10.0); %Lymphocytes 34.4 % (21.0-51.0); %Monocytes 8.1 % (0.0-10.0); %Neutrophils 55.4 % (42.0-75.0); Hemoglobin 11.1 g/dL (12.0-16.0); Mean Corpuscular Hemoglobin 27.5 pg (27.0-31.0); Mean Corpuscular Volume 83.3 fL (78.0-98.0); Mean Platelet Volume 8.1 fL (7.4-10.4); Platelet Count 236 thou/uL (130-400); RBC Distribution Width 13.3 % (11.5-14.5); Red Blood Cell (RBC) Count 4.02 mill/uL (4.20-5.40); White Blood Cell (WBC) Count 8.5 thou/uL (4.8-10.8)
[2021-09-13 22:01] LABS: ALT (SGPT) 15 U/L (8-55); AST (SGOT) 15 U/L (5-34); Albumin 4.1 g/dL (3.5-5.0); Alkaline Phosphatase 46 U/L (40-110); Anion Gap 13 mmol/L (10-20); BUN (Urea Nitrogen) 8 mg/dL (7.0-18.7); Bilirubin, Total 0.2 mg/dL (0.2-1.2); Calc. Creatinine Clearance 0 mL/min (70-130); Calcium 9.2 mg/dL (7.8-10.44); Carbon Dioxide 24 mmol/L (22-29); Chloride 105 mmol/L (98-107); Glucose 118 mg/dL (70-105); Potassium 3.5 mmol/L (3.5-5.1); Protein, Total 7.1 g/dL (6.0-8.3); Sodium 138 mmol/L (136-145)
[2021-09-13 22:25] LABS: INR-International Normal Ratio 0.9; PTT 29.1 sec (22.9-36.1); Prothrombin Time 12.4 sec (12.0-14.7)
[2021-09-13] MEDS ORDERED: Acetaminophen 500 MG TAB ONE (23:56)
[2021-09-14] MEDS ORDERED: Ketorolac Tromethamine 30 MG/ML VIAL ONE (00:36)
[2021-09-14] MEDS ORDERED: Nicotine 14 MG PATCH ONE (01:26)
[2021-09-14 02:45] VITALS: BMI 30.2
[2021-09-14] MEDS ORDERED: Morphine 4 MG/ML VIAL SLOW IVP SCH (04:30)
[2021-09-14] MEDS ORDERED: Ondansetron PF 4 MG/2 ML Vial IVP PRN (08:06)
[2021-09-14] MEDS ORDERED: Senokot S 8.6-50 MG TAB PO PRN (08:06)
[2021-09-14] MEDS ORDERED: Acetaminophen 325 MG TAB PO PRN (08:06)
[2021-09-14] MEDS ORDERED: Ondansetron ODT 4 MG TAB PO PRN (08:06)
[2021-09-14] MEDS ORDERED: Calcium Carbonate 500 MG ChewTAB PO PRN (08:06)
[2021-09-14] MEDS: rOPINIRole HCl 2 MG TAB PO SCH ×2 (08:55→21:32)
[2021-09-14] MEDS: Clopidogrel Bisulfate 75 MG TAB PO SCH (08:55)
[2021-09-14] MEDS: Acetaminophen/Codeine 30-300mg Tablet PO SCH ×2 (08:55→21:30)
[2021-09-14] MEDS: Fish Oil 1,000 MG CAP PO SCH (08:56)
[2021-09-14] MEDS: clonazePAM 1 MG TAB PO SCH ×2 (08:56→21:30)
[2021-09-14] MEDS: Cyanocobalamin (Vitamin B-12) 1,000 MCG TAB PO SCH (08:56)
[2021-09-14] MEDS ORDERED: Famotidine 20 MG TAB PO SCH (09:00)
[2021-09-14] MEDS ORDERED: Magnesium Oxide 250 MG TAB PO SCH (10:00)
[2021-09-14 10:19] LABS: Bacteria/HPF None Seen HPF (None Seen); Bilirubin Negative (Negative); Blood, Urine 3+ (Negative); Clarity Clear (Clear); Glucose, Urine (Dipstick) Normal (Negative); Ketone, Urine Negative (Negative); Leukocyte Negative Leu/uL (Negative); Nitrite Negative (Negative); Protein, Urine (Dipstick) 10 mg/dL (Neg-Trace); Specific Gravity, Urine 1.043 (1.002-1.036); Urobilinogen Normal mg/dL (Less than 2); WBC/HPF 0-3 HPF (0-3)
[2021-09-14 10:34] LABS: Pregnancy Test - Urine (BHCG) Negative (Negative); Pregu Control Background? CLEAR/WHITE (CLR/WHITE); Pregu Control Bar Appear? YES (CONTROL BAR); Specific Gravity 1.043 (1.002-1.036)
[2021-09-14] MEDS: Timolol 0.5% Ophth Soln 5 ml Bottle L EYE SCH ×2 (12:06→21:35)
[2021-09-14] MEDS ORDERED: Lorazepam 1 MG TAB PO PRN (16:09)
[2021-09-14] MEDS: Enoxaparin Sodium 40 MG/0.4 ML SYRINGE SC SCH (21:30)
[2021-09-14] MEDS: Atorvastatin Calcium 40 MG TAB PO SCH (21:32)
[2021-09-14] MEDS: Latanoprost 0.005% Ophth Soln 2.5 ml Bottle L EYE SCH (21:34)
[2021-09-14] MEDS: Nicotine 14 MG PATCH TD SCH (23:37)
[2021-09-15] MEDS ORDERED: Potassium Chloride 20 MEQ TAB PO SCH (08:00)
[2021-09-15] MEDS ORDERED: Lorazepam 2 MG/ML VIAL SLOW IVP SCH (09:45)
[2021-09-15] MEDS: rOPINIRole HCl 2 MG TAB PO SCH ×2 (09:46→22:35)
[2021-09-15] MEDS: Magnesium Oxide 250 MG TAB PO SCH (09:46)
[2021-09-15] MEDS: Acetaminophen/Codeine 30-300mg Tablet PO SCH ×2 (09:47→23:17)
[2021-09-15] MEDS: clonazePAM 1 MG TAB PO SCH ×2 (09:47→22:35)
[2021-09-15] MEDS: Fish Oil 1,000 MG CAP PO SCH (09:47)
[2021-09-15] MEDS: Cyanocobalamin (Vitamin B-12) 1,000 MCG TAB PO SCH (09:49)
[2021-09-15] MEDS: Clopidogrel Bisulfate 75 MG TAB PO SCH (09:49)
[2021-09-15] MEDS: Timolol 0.5% Ophth Soln 5 ml Bottle L EYE SCH ×2 (09:49→22:33)
[2021-09-15] MEDS ORDERED: Acetaminophen/Codeine 30-300mg Tablet PO SCH (18:15)
[2021-09-15] MEDS: Atorvastatin Calcium 40 MG TAB PO SCH (18:34)
[2021-09-15] MEDS: Latanoprost 0.005% Ophth Soln 2.5 ml Bottle L EYE SCH (22:29)
[2021-09-15] MEDS: Enoxaparin Sodium 40 MG/0.4 ML SYRINGE SC SCH (22:33)
[2021-09-15] MEDS: Nicotine 14 MG PATCH TD SCH (22:35)
[2021-09-15] MEDS: Aggrenox 200-25mg CAP PO SCH (22:35)
[2021-09-16] MEDS ORDERED: traMADol HCl 50 MG TAB PO SCH (06:30)
[2021-09-16] MEDS ORDERED: HYDROcodone/Acetaminophen 5/325 mg Tablet PO SCH (07:00)
[2021-09-16] MEDS: Acetaminophen/Codeine 30-300mg Tablet PO SCH (08:21)
[2021-09-16] MEDS: Cyanocobalamin (Vitamin B-12) 1,000 MCG TAB PO SCH (08:22)
[2021-09-16] MEDS: Fish Oil 1,000 MG CAP PO SCH (08:22)
[2021-09-16] MEDS: clonazePAM 1 MG TAB PO SCH (08:22)
[2021-09-16] MEDS: Aggrenox 200-25mg CAP PO SCH (08:22)
[2021-09-16] MEDS: rOPINIRole HCl 2 MG TAB PO SCH (08:22)
[2021-09-16] MEDS: Magnesium Oxide 250 MG TAB PO SCH (08:23)
[2021-09-16] MEDS: Timolol 0.5% Ophth Soln 5 ml Bottle L EYE SCH (08:24)
[2021-09-16 08:34] VITALS: BP 107/54; TEMP 97.9
== END 2021-09-16 11:55 | disposition home or self-care (01) ==
LOC: ERS 21:11 → NEURO 09-14 00:48
PROVIDERS: ADMIT Student in an Organized Health Care Education/Training Program; ATTEND Hospitalist
DX: R53.1 Weakness (principal); I77.3 Arterial fibromuscular dysplasia; F44.5 Conversion disorder with seizures or convulsions; F17.210 Nicotine dependence, cigarettes, uncomplicated; H40.9 Unspecified glaucoma; H54.61 Unqualified visual loss, right eye, normal vision left eye; K21.9 Gastro-esophageal reflux disease without esophagitis; G25.81 Restless legs syndrome; E87.6 Hypokalemia; E78.5 Hyperlipidemia, unspecified; G89.29 Other chronic pain; M54.9 Dorsalgia, unspecified; I77.6 Arteritis, unspecified; E66.9 Obesity, unspecified; Z68.30 Body mass index [BMI] 30.0-30.9, adult; Z86.73 Personal history of transient ischemic attack (TIA), and cerebral infarction without residual deficits; Z79.899 Other long term (current) drug therapy; Z88.6 Allergy status to analgesic agent
CPT/HCPCS: 70450; 70496; 70498; 70551; 71045; 80053; 81001; 81025; 84484; 85025; 85610; 85730; 93005; 95715; 95819; 95957; 96372; 96374; 96375; G0378; J1650; J1885; J2060; J2270

== ENCOUNTER 2021-11-27 14:12 | Emergency (ER) | payer OTHER ==
[2021-11-27 15:21] LABS: #Basophils 0.1 thou/uL (0.0-0.2); #Eosinphils 0.1 thou/uL (0.0-0.7); #Lymphocytes 2.7 thou/uL (1.20-3.40); #Monocytes 0.6 thou/uL (0.11-0.59); #Neutrophils 4.9 thou/uL (1.40-6.50); %Basophils 0.9 % (0.0-1.0); %Eosinophils 0.8 % (0.0-10.0); %Lymphocytes 32.6 % (21.0-51.0); %Monocytes 6.7 % (0.0-10.0); %Neutrophils 59.1 % (42.0-75.0); Hemoglobin 10.1 g/dL (12.0-16.0); Mean Corpuscular HGB CONC 31.8 g/dL (32.0-36.0); Mean Corpuscular Volume 81.7 fL (78.0-98.0); Mean Platelet Volume 7.9 fL (7.4-10.4); Platelet Count 315 thou/uL (130-400); RBC Distribution Width 15.1 % (11.5-14.5); Red Blood Cell (RBC) Count 3.87 mill/uL (4.20-5.40); White Blood Cell (WBC) Count 8.3 thou/uL (4.8-10.8)
[2021-11-27 15:46] LABS: ALT (SGPT) 21 U/L (8-55); AST (SGOT) 20 U/L (5-34); Albumin 4.4 g/dL (3.5-5.0); Alkaline Phosphatase 45 U/L (40-110); Anion Gap 12 mmol/L (10-20); BUN (Urea Nitrogen) 4 mg/dL (7.0-18.7); Bilirubin, Total 0.3 mg/dL (0.2-1.2); Calc. Creatinine Clearance 0 mL/min (70-130); Carbon Dioxide 22 mmol/L (22-29); Chloride 107 mmol/L (98-107); Globulin 2.8 g/dL (2.4-3.5); Glucose 87 mg/dL (70-105); Potassium 3.8 mmol/L (3.5-5.1); Protein, Total 7.2 g/dL (6.0-8.3); Sodium 137 mmol/L (136-145)
== END 2021-11-27 16:26 | disposition home or self-care (01) ==
LOC: ERS 14:12
DX: R07.89 Other chest pain (principal); Z79.899 Other long term (current) drug therapy; Z79.82 Long term (current) use of aspirin; E78.00 Pure hypercholesterolemia, unspecified; Z87.891 Personal history of nicotine dependence
CPT/HCPCS: 36415; 71045; 80053; 84484; 85025; 93005

== ENCOUNTER 2022-01-03 20:25 | Inpatient (IN) | payer OTHER ==
[2022-01-03 20:58] LABS: #Basophils 0.1 thou/uL (0.0-0.2); #Eosinphils 0.1 thou/uL (0.0-0.7); #Lymphocytes 3.5 thou/uL (1.20-3.40); #Monocytes 0.8 thou/uL (0.11-0.59); #Neutrophils 5.7 thou/uL (1.40-6.50); %Basophils 0.5 % (0.0-1.0); %Eosinophils 0.9 % (0.0-10.0); %Lymphocytes 34.5 % (21.0-51.0); Mean Corpuscular HGB CONC 29.9 g/dL (32.0-36.0); Mean Corpuscular Volume 80.3 fL (78.0-98.0); Mean Platelet Volume 7.9 fL (7.4-10.4); Platelet Count 345 thou/uL (130-400); RBC Distribution Width 15.7 % (11.5-14.5); Red Blood Cell (RBC) Count 3.32 mill/uL (4.20-5.40); White Blood Cell (WBC) Count 10.2 thou/uL (4.8-10.8)
[2022-01-03 21:04] LABS: INR-International Normal Ratio 0.9; Prothrombin Time 12.1 sec (12.0-14.7)
[2022-01-03 21:05] LABS: PTT 26.9 sec (22.9-36.1)
[2022-01-03 21:22] LABS: ALT (SGPT) 30 U/L (8-55); AST (SGOT) 22 U/L (5-34); Albumin 3.7 g/dL (3.5-5.0); Alkaline Phosphatase 49 U/L (40-110); Anion Gap 12 mmol/L (10-20); BUN (Urea Nitrogen) 7 mg/dL (7.0-18.7); Bilirubin, Total 0.2 mg/dL (0.2-1.2); CK (CPK) 34 U/L (29-168); Calc. Creatinine Clearance 0 mL/min (70-130); Calcium 8.2 mg/dL (7.8-10.44); Carbon Dioxide 23 mmol/L (22-29); Chloride 105 mmol/L (98-107); Glucose 113 mg/dL (70-105); Potassium 4.1 mmol/L (3.5-5.1); Protein, Total 5.7 g/dL (6.0-8.3); Sodium 136 mmol/L (136-145)
[2022-01-03] MEDS ORDERED: Lorazepam 2 MG/ML VIAL ONE (22:06)
[2022-01-04 01:29] VITALS: BMI 31.8
[2022-01-04] MEDS ORDERED: Nicotine 14 MG PATCH TD SCH (02:00)
[2022-01-04] MEDS ORDERED: rOPINIRole HCl 2 MG TAB PO SCH ×4 (02:00→09:00)
[2022-01-04] MEDS ORDERED: Ondansetron ODT 4 MG TAB PO PRN (08:38)
[2022-01-04] MEDS ORDERED: Acetaminophen 325 MG TAB PO PRN (08:38)
[2022-01-04] MEDS ORDERED: Ondansetron PF 4 MG/2 ML Vial IVP PRN (08:38)
[2022-01-04] MEDS ORDERED: hydrALAZINE 20 MG/ML VIAL SLOW IVP PRN (08:38)
[2022-01-04] MEDS ORDERED: Acetaminophen 650 MG Suppository PR PRN (08:38)
[2022-01-04] MEDS ORDERED: Non-Formulary Item 1 EACH (Timolol [Betimol 0.5% Ophth Solution] 5 ML Bottle) L EYE SCH (09:00)
[2022-01-04] MEDS ORDERED: clonazePAM 1 MG TAB PO SCH ×2 (09:00→15:52)
[2022-01-04] MEDS ORDERED: Non-Formulary Item 1 EACH (Magnesium Oxide [Magnesium] 500 MG Capsule) PO SCH (09:00)
[2022-01-04] MEDS ORDERED: Lorazepam 2 MG/ML VIAL SLOW IVP PRN (10:24)
[2022-01-04] MEDS: Aggrenox 200-25mg CAP PO SCH ×2 (10:27→21:48)
[2022-01-04] MEDS: Magnesium Oxide 250 MG TAB PO SCH (10:28)
[2022-01-04] MEDS: Cyanocobalamin (Vitamin B-12) 1,000 MCG TAB PO SCH (10:28)
[2022-01-04] MEDS: Timolol 0.5% Ophth Soln 5 ml Bottle L EYE SCH ×2 (10:29→22:06)
[2022-01-04 11:09] LABS: Iron Binding Capacity, Total 391 mcg/dL (265-497)
[2022-01-04 11:10] LABS: Iron 14 ug/dL (50-170)
[2022-01-04] MEDS ORDERED: Lorazepam 2 MG/ML VIAL SLOW IVP SCH (11:45)
[2022-01-04 12:25] LABS: SARS-CoV-2 PCR by NAA Not Detected (NotDetected)
[2022-01-04] MEDS: Acetaminophen/Codeine 30-300mg Tablet PO PRN ×2 (13:32→21:48)
[2022-01-04] MEDS: Nicotine 14 MG PATCH TD SCH (14:58)
[2022-01-04] MEDS ORDERED: Gabapentin 300 MG CAP PO SCH (15:15)
[2022-01-04] MEDS ORDERED: Non-Formulary Item 1 EACH (Latanoprost/Pf [Latanoprost 0.005% Eye Drop] 7.5 ML Drops) OP SCH (21:00)
[2022-01-04] MEDS ORDERED: Acetaminophen/Codeine 30-300mg Tablet PO SCH (21:00)
[2022-01-04] MEDS: Atorvastatin Calcium 40 MG TAB PO SCH (21:48)
[2022-01-04] MEDS: clonazePAM 1 MG TAB PO SCH (21:48)
[2022-01-04] MEDS: rOPINIRole HCl 2 MG TAB PO SCH (21:48)
[2022-01-04] MEDS: Latanoprost 0.005% Ophth Soln 2.5 ml Bottle L EYE SCH (22:07)
[2022-01-05 04:56] LABS: #Basophils 0.1 thou/uL (0.0-0.2); #Eosinphils 0.1 thou/uL (0.0-0.7); #Lymphocytes 3.2 thou/uL (1.20-3.40); #Monocytes 0.8 thou/uL (0.11-0.59); %Basophils 0.5 % (0.0-1.0); %Eosinophils 0.7 % (0.0-10.0); %Lymphocytes 28.5 % (21.0-51.0); %Monocytes 7.5 % (0.0-10.0); %Neutrophils 62.7 % (42.0-75.0); Hemoglobin 8.8 g/dL (12.0-16.0); Mean Corpuscular HGB CONC 31.6 g/dL (32.0-36.0); Mean Corpuscular Hemoglobin 25.2 pg (27.0-31.0); Mean Corpuscular Volume 79.8 fL (78.0-98.0); Platelet Count 346 thou/uL (130-400); RBC Distribution Width 15.7 % (11.5-14.5); Red Blood Cell (RBC) Count 3.49 mill/uL (4.20-5.40); White Blood Cell (WBC) Count 11.1 thou/uL (4.8-10.8)
[2022-01-05 05:18] LABS: Anion Gap 13 mmol/L (10-20); BUN (Urea Nitrogen) 10 mg/dL (7.0-18.7); Calc. Creatinine Clearance 144 mL/min (70-130); Carbon Dioxide 25 mmol/L (22-29); Cardiac Risk 3.2 (Less than 4.5); Chloride 105 mmol/L (98-107); Cholesterol 143 mg/dl (< 200 Desired); Glucose 73 mg/dL (70-105); HDL Cholesterol 45 mg/dL (>60 Neg Risk); LDL Cholesterol, Calculated 52 mg/dL; Potassium 3.9 mmol/L (3.5-5.1); Sodium 139 mmol/L (136-145); Triglycerides 228 mg/dL (Less than 150)
[2022-01-05] MEDS: Acetaminophen/Codeine 30-300mg Tablet PO PRN ×2 (06:33→18:14)
[2022-01-05] MEDS: Enoxaparin Sodium 40 MG/0.4 ML SYRINGE SC SCH (09:16)
[2022-01-05] MEDS: Aggrenox 200-25mg CAP PO SCH ×2 (09:16→21:18)
[2022-01-05] MEDS: Fish Oil 1,000 MG CAP PO SCH (09:16)
[2022-01-05] MEDS: Magnesium Oxide 250 MG TAB PO SCH (09:16)
[2022-01-05] MEDS: Cyanocobalamin (Vitamin B-12) 1,000 MCG TAB PO SCH (09:17)
[2022-01-05] MEDS: clonazePAM 1 MG TAB PO SCH ×2 (09:17→21:18)
[2022-01-05] MEDS: Timolol 0.5% Ophth Soln 5 ml Bottle L EYE SCH ×2 (09:21→21:24)
[2022-01-05] MEDS ORDERED: Iron, Sodium Ferric Gluconate 250 MG in Sodium Chloride 0.9% 250 ML 250 ML IVPB SCH (10:00)
[2022-01-05] MEDS ORDERED: Hydrocortisone Sod Succ/PF 100 mg/2 ml Vial IVP SCH (12:30)
[2022-01-05] MEDS ORDERED: diphenhydrAMINE 25 MG CAP PO SCH (13:45)
[2022-01-05] MEDS ORDERED: Sodium Chloride 0.9% 1,000 ML IV SCH (13:45)
[2022-01-05] MEDS: Nicotine 14 MG PATCH TD SCH (16:34)
[2022-01-05] MEDS: Atorvastatin Calcium 40 MG TAB PO SCH (21:18)
[2022-01-05] MEDS: diphenhydrAMINE 25 MG CAP PO SCH (21:18)
[2022-01-05] MEDS: rOPINIRole HCl 2 MG TAB PO SCH (21:19)
[2022-01-05] MEDS: Latanoprost 0.005% Ophth Soln 2.5 ml Bottle L EYE SCH (21:23)
[2022-01-05] MEDS: methylPREDNISolone Sod Succ 40 MG VIAL IVP SCH (22:35)
[2022-01-06] MEDS: Acetaminophen/Codeine 30-300mg Tablet PO PRN (05:31)
[2022-01-06] MEDS: methylPREDNISolone Sod Succ 40 MG VIAL IVP SCH (05:31)
[2022-01-06 05:58] LABS: #Lymphocytes 0.9 thou/uL (1.20-3.40); #Monocytes 0.2 thou/uL (0.11-0.59); #Neutrophils 17.9 thou/uL (1.40-6.50); %Basophils 0.2 % (0.0-1.0); %Eosinophils 0.1 % (0.0-10.0); %Lymphocytes 4.9 % (21.0-51.0); %Neutrophils 93.8 % (42.0-75.0); Hemoglobin 8.7 g/dL (12.0-16.0); Mean Corpuscular Hemoglobin 25.1 pg (27.0-31.0); Mean Corpuscular Volume 80.7 fL (78.0-98.0); Mean Platelet Volume 8.6 fL (7.4-10.4); Platelet Count 313 thou/uL (130-400); RBC Distribution Width 15.7 % (11.5-14.5); Red Blood Cell (RBC) Count 3.48 mill/uL (4.20-5.40); White Blood Cell (WBC) Count 19.1 thou/uL (4.8-10.8)
[2022-01-06 06:21] LABS: Anion Gap 11 mmol/L (10-20); BUN (Urea Nitrogen) 7 mg/dL (7.0-18.7); Calc. Creatinine Clearance 141 mL/min (70-130); Calcium 8.8 mg/dL (7.8-10.44); Carbon Dioxide 22 mmol/L (22-29); Chloride 109 mmol/L (98-107); Glucose 120 mg/dL (70-105); Potassium 4.4 mmol/L (3.5-5.1); Sodium 138 mmol/L (136-145)
[2022-01-06] MEDS: Magnesium Oxide 250 MG TAB PO SCH (08:06)
[2022-01-06] MEDS: Enoxaparin Sodium 40 MG/0.4 ML SYRINGE SC SCH (08:06)
[2022-01-06] MEDS: Aggrenox 200-25mg CAP PO SCH (08:07)
[2022-01-06] MEDS: Timolol 0.5% Ophth Soln 5 ml Bottle L EYE SCH (08:07)
[2022-01-06] MEDS: diphenhydrAMINE 25 MG CAP PO SCH (08:08)
[2022-01-06] MEDS: Cyanocobalamin (Vitamin B-12) 1,000 MCG TAB PO SCH (08:08)
[2022-01-06] MEDS: clonazePAM 1 MG TAB PO SCH (08:08)
[2022-01-06] MEDS: Fish Oil 1,000 MG CAP PO SCH (08:09)
[2022-01-06 09:20] VITALS: BP 107/67; TEMP 98.7
[2022-01-08 15:16] LABS: Cytoplasmic (C-ANCA) <1:20 titer (Neg:<1:20); Myeloperoxidase AutoAbs <9.0 U/mL (0.0-9.0); Perinuclear (P-ANCA) <1:20 titer (Neg:<1:20); Proteinase-3 AutoAbs Less than 3.5 U/mL (0.0-3.5)
[2022-01-10 22:12] LABS: Methylmalonic Acid 165 nmol/L (0-378)
== END 2022-01-06 09:20 | disposition home or self-care (01) | DRG 916 ==
LOC: ERS 20:25 → NEURO 22:32 → OBSVTOIN 01-05 14:29
PROVIDERS: ADMIT Student in an Organized Health Care Education/Training Program; ATTEND Internal Medicine
DX: T88.6XXA Anaphylactic reaction due to adverse effect of correct drug or medicament properly administered, initial encounter (principal); G45.9 Transient cerebral ischemic attack, unspecified; Z20.822 Contact with and (suspected) exposure to COVID-19; D50.9 Iron deficiency anemia, unspecified; I10 Essential (primary) hypertension; T45.4X5A Adverse effect of iron and its compounds, initial encounter; G25.81 Restless legs syndrome; H40.9 Unspecified glaucoma; H54.40 Blindness, one eye, unspecified eye; K21.9 Gastro-esophageal reflux disease without esophagitis; E78.5 Hyperlipidemia, unspecified; F17.210 Nicotine dependence, cigarettes, uncomplicated; I77.3 Arterial fibromuscular dysplasia; M54.9 Dorsalgia, unspecified; G89.29 Other chronic pain; E78.00 Pure hypercholesterolemia, unspecified; M79.7 Fibromyalgia; F44.5 Conversion disorder with seizures or convulsions; F41.9 Anxiety disorder, unspecified; Z88.8 Allergy status to other drugs, medicaments and biological substances; Z79.899 Other long term (current) drug therapy; Z86.73 Personal history of transient ischemic attack (TIA), and cerebral infarction without residual deficits; Z98.890 Other specified postprocedural states; Z82.3 Family history of stroke; Z80.1 Family history of malignant neoplasm of trachea, bronchus and lung; Z80.0 Family history of malignant neoplasm of digestive organs
CPT/HCPCS: 36415; 36416; 70450; 70496; 70498; 70551; 80048; 80053; 80061; 82550; 82728; 83090; 83520; 83540; 83550; 83921; 84484; 85025; 85610; 85730; 86037; 93005; 93010; 96372; 96374; 96375; 96376; G0378; J1650; J1720; J2060; J2916; J2920; J7050; Q9967; U0003; U0005

== ENCOUNTER 2022-02-23 20:10 | Observation (INO) | payer OTHER ==
[2022-02-23] MEDS ORDERED: Lorazepam 2 MG/ML VIAL ONE (20:22)
[2022-02-23 20:59] LABS: #Lymphocytes 3.3 thou/uL (1.20-3.40); #Monocytes 0.6 thou/uL (0.11-0.59); #Neutrophils 8.9 thou/uL (1.40-6.50); %Eosinophils 0.2 % (0.0-10.0); %Lymphocytes 25.7 % (21.0-51.0); %Monocytes 4.5 % (0.0-10.0); %Neutrophils 69.6 % (42.0-75.0); Hemoglobin 13.3 g/dL (12.0-16.0); Mean Corpuscular Hemoglobin 29.1 pg (27.0-31.0); Mean Corpuscular Volume 90.8 fL (78.0-98.0); Mean Platelet Volume 9.5 fL (7.4-10.4); Platelet Count 265 thou/uL (130-400); RBC Distribution Width 20.4 % (11.5-14.5); Red Blood Cell (RBC) Count 4.58 mill/uL (4.20-5.40); White Blood Cell (WBC) Count 12.8 thou/uL (4.8-10.8)
[2022-02-23] MEDS ORDERED: levETIRAcetam 500 MG/5 ML VIAL ONE (20:59)
[2022-02-23 21:10] LABS: Acetaminophen Less than 10.0 mcg/mL (10.0-30.0); Alcohol Less than 10 mg/dL (Less than 10); Salicylate Less than 8.0 mg/dL (15.0-30.0)
[2022-02-23 21:11] LABS: ALT (SGPT) 29 U/L (8-55); AST (SGOT) 18 U/L (5-34); Albumin 4.7 g/dL (3.5-5.0); Alkaline Phosphatase 57 U/L (40-110); Anion Gap 16 mmol/L (10-20); BUN (Urea Nitrogen) 7 mg/dL (7.0-18.7); Bilirubin, Total 0.3 mg/dL (0.2-1.2); Calc. Creatinine Clearance 0 mL/min (70-130); Calcium 9.5 mg/dL (7.8-10.44); Carbon Dioxide 21 mmol/L (22-29); Chloride 106 mmol/L (98-107); Globulin 3.2 g/dL (2.4-3.5); Glucose 103 mg/dL (70-105); Potassium 3.8 mmol/L (3.5-5.1); Protein, Total 7.9 g/dL (6.0-8.3); Sodium 139 mmol/L (136-145)
[2022-02-23 21:13] LABS: BHCG - Serum Negative (NEGATIVE); Pregs Control Background? CLEAR/WHITE (CLR/WHITE); Pregs Control Bar Appear? YES (CONTROL BAR)
[2022-02-23 22:22] LABS: Amphetamine Not Detected (NotDetected); Barbiturates Screen Not Detected (NotDetected); Benzodiazepine Screen Not Detected (NotDetected); Cocaine Metabolite Screen Not Detected (NotDetected); Methadone Not Detected (NotDetected); Methamphetamine Not Detected (NotDetected); Opiate Screen Detected (NotDetected); Oxycodone Screen Not Detected (NotDetected); Phencyclidine (PCP) Not Detected (NotDetected); THC/Cannabinoid Screen Not Detected (NotDetected); Tricyclic Screen Not Detected (NotDetected)
[2022-02-24] MEDS ORDERED: Ketorolac Tromethamine 30 MG/ML VIAL ONE (00:20)
[2022-02-24 01:51] VITALS: BMI 30.9
[2022-02-24] MEDS ORDERED: Ondansetron PF 4 MG/2 ML Vial IVP PRN (04:10)
[2022-02-24] MEDS ORDERED: Acetaminophen 650 MG Suppository PR PRN (04:10)
[2022-02-24] MEDS ORDERED: Acetaminophen 325 MG TAB PO PRN (04:10)
[2022-02-24] MEDS ORDERED: Ondansetron ODT 4 MG TAB PO PRN (04:10)
[2022-02-24] MEDS ORDERED: Lorazepam 2 MG/ML VIAL SLOW IVP PRN (04:13)
[2022-02-24] MEDS ORDERED: rOPINIRole HCl 2 MG TAB PO SCH ×3 (04:30→21:00)
[2022-02-24 04:44] VITALS: BP 100/42; TEMP 98.1
[2022-02-24] MEDS ORDERED: Nicotine 14 MG PATCH TD SCH (06:00)
[2022-02-24] MEDS ORDERED: clonazePAM 1 MG TAB PO SCH (09:00)
[2022-02-24] MEDS ORDERED: Enoxaparin Sodium 40 MG/0.4 ML SYRINGE SC SCH (09:00)
== END 2022-02-24 04:47 | disposition left against medical advice (07) ==
LOC: ERS 20:10 → NEURO 23:48
PROVIDERS: ADMIT Student in an Organized Health Care Education/Training Program; ATTEND Student in an Organized Health Care Education/Training Program
DX: G93.40 Encephalopathy, unspecified (principal); G40.909 Epilepsy, unspecified, not intractable, without status epilepticus; G25.81 Restless legs syndrome; E78.5 Hyperlipidemia, unspecified; M79.7 Fibromyalgia; M06.9 Rheumatoid arthritis, unspecified; Z53.29 Procedure and treatment not carried out because of patient's decision for other reasons; Z86.73 Personal history of transient ischemic attack (TIA), and cerebral infarction without residual deficits; Z87.891 Personal history of nicotine dependence; Z79.899 Other long term (current) drug therapy; Z88.6 Allergy status to analgesic agent
CPT/HCPCS: 70450; 80053; 80306; 80307; 84146; 84703; 85025; 96361; 96374; 96375; G0378; J1885; J1953; J2060

== ENCOUNTER 2022-03-13 18:35 | Observation (INO) | payer OTHER ==
[~2022-03-13 18:35] MED LIST changes: +Iopamidol 370 76% 100 ML VIAL ONE; -Iopamidol-370 76% 500 ML 1 ML ONE
[2022-03-13 18:52] LABS: #Basophils 0.1 thou/uL (0.0-0.2); #Eosinphils 0.1 thou/uL (0.0-0.7); #Monocytes 0.6 thou/uL (0.11-0.59); #Neutrophils 6.1 thou/uL (1.40-6.50); %Basophils 0.7 % (0.0-1.0); %Eosinophils 0.7 % (0.0-10.0); %Lymphocytes 37.3 % (21.0-51.0); %Monocytes 5.5 % (0.0-10.0); %Neutrophils 55.9 % (42.0-75.0); Hemoglobin 12.7 g/dL (12.0-16.0); Mean Corpuscular HGB CONC 33.3 g/dL (32.0-36.0); Mean Corpuscular Hemoglobin 30.3 pg (27.0-31.0); Mean Corpuscular Volume 90.9 fL (78.0-98.0); Mean Platelet Volume 9.1 fL (7.4-10.4); Platelet Count 252 thou/uL (130-400); White Blood Cell (WBC) Count 10.8 thou/uL (4.8-10.8)
[2022-03-13] MEDS ORDERED: Lorazepam 2 MG/ML VIAL ONE ×2 (18:53→20:25)
[2022-03-13 19:14] LABS: ALT (SGPT) 27 U/L (8-55); AST (SGOT) 24 U/L (5-34); Albumin 4.2 g/dL (3.5-5.0); Alkaline Phosphatase 48 U/L (40-110); Anion Gap 13 mmol/L (10-20); BUN (Urea Nitrogen) 8 mg/dL (7.0-18.7); Bilirubin, Total 0.3 mg/dL (0.2-1.2); Calc. Creatinine Clearance 0 mL/min (70-130); Calcium 8.9 mg/dL (7.8-10.44); Carbon Dioxide 24 mmol/L (22-29); Chloride 106 mmol/L (98-107); Globulin 2.7 g/dL (2.4-3.5); Glucose 133 mg/dL (70-105); Potassium 4.2 mmol/L (3.5-5.1); Protein, Total 6.9 g/dL (6.0-8.3); Sodium 139 mmol/L (136-145)
[2022-03-13] MEDS ORDERED: Acetaminophen 500 MG TAB ONE (20:13)
[2022-03-13] MEDS ORDERED: levETIRAcetam 500 MG/5 ML VIAL ONE (20:27)
[2022-03-13] MEDS ORDERED: Lorazepam 2 MG/ML VIAL SLOW IVP SCH (21:00)
[2022-03-13 22:37] LABS: Troponin I Less than 0.010 ng/mL (< 0.028)
[2022-03-13] MEDS ORDERED: Nicotine 21 MG PATCH TD SCH (22:45)
[2022-03-13] MEDS ORDERED: clonazePAM 1 MG TAB PO SCH (22:45)
[2022-03-13 23:32] VITALS: BMI 30.8
[2022-03-14] MEDS: Lorazepam 2 MG/ML VIAL SLOW IVP PRN ×3 (00:23→15:32)
[2022-03-14 02:05] LABS: Troponin I Less than 0.010 ng/mL (< 0.028)
[2022-03-14] MEDS ORDERED: rOPINIRole HCl 2 MG TAB PO SCH ×2 (03:00→21:00)
[2022-03-14 07:10] LABS: Cardiac Risk 3.2 (Less than 4.5)
[2022-03-14] MEDS ORDERED: diphenhydrAMINE 25 MG CAP PO SCH (09:00)
[2022-03-14] MEDS ORDERED: Magnesium Oxide 250 MG TAB PO SCH (09:00)
[2022-03-14] MEDS ORDERED: predniSONE 5 MG TAB PO SCH (09:00)
[2022-03-14] MEDS ORDERED: Cyanocobalamin (Vitamin B-12) 1,000 MCG TAB PO SCH (09:00)
[2022-03-14] MEDS ORDERED: clonazePAM 1 MG TAB PO SCH (09:00)
[2022-03-14] MEDS ORDERED: Nicotine 21 MG PATCH TD SCH ×2 (09:00)
[2022-03-14] MEDS ORDERED: Timolol 0.5% Ophth Soln 5 ml Bottle L EYE SCH (09:00)
[2022-03-14] MEDS ORDERED: Aggrenox 200-25mg CAP PO SCH (09:00)
[2022-03-14] MEDS ORDERED: Fish Oil 1,000 MG CAP PO SCH (09:00)
[2022-03-14] MEDS ORDERED: Ferrous Sulfate 325 MG TAB PO SCH (09:00)
[2022-03-14] MEDS ORDERED: Acetaminophen/Codeine 30-300mg Tablet PO SCH ×2 (09:00→15:00)
[2022-03-14 15:54] VITALS: TEMP 98.3
[2022-03-14 16:48] VITALS: BP 106/63
[2022-03-14] MEDS ORDERED: Latanoprost 0.005% Ophth Soln 2.5 ml Bottle L EYE SCH (21:00)
[2022-03-14] MEDS ORDERED: Atorvastatin Calcium 40 MG TAB PO SCH (21:00)
[2022-03-15] MEDS ORDERED: Clopidogrel Bisulfate 75 MG TAB PO SCH (09:00)
== END 2022-03-14 18:55 | disposition left against medical advice (07) ==
LOC: ERS 18:35 → NEURO 20:45
PROVIDERS: ADMIT Internal Medicine; ATTEND Internal Medicine
DX: F44.5 Conversion disorder with seizures or convulsions (principal); I77.3 Arterial fibromuscular dysplasia; I10 Essential (primary) hypertension; E78.5 Hyperlipidemia, unspecified; M79.7 Fibromyalgia; M06.9 Rheumatoid arthritis, unspecified; G25.81 Restless legs syndrome; H33.21 Serous retinal detachment, right eye; D50.9 Iron deficiency anemia, unspecified; R53.1 Weakness; R29.810 Facial weakness; G89.29 Other chronic pain; M54.9 Dorsalgia, unspecified; I77.6 Arteritis, unspecified; R51.9 Headache, unspecified; Z53.29 Procedure and treatment not carried out because of patient's decision for other reasons; Z86.73 Personal history of transient ischemic attack (TIA), and cerebral infarction without residual deficits; Z87.891 Personal history of nicotine dependence; Z79.899 Other long term (current) drug therapy; Z88.8 Allergy status to other drugs, medicaments and biological substances; Z99.3 Dependence on wheelchair; Z20.822 Contact with and (suspected) exposure to COVID-19
CPT/HCPCS: 36415; 70450; 70496; 70498; 70551; 80053; 80061; 84484; 85025; 93005; 95712; 95819; 95957; 96374; 96375; 96376; G0378; J1953; J2060; Q9967; U0003; U0005

== ENCOUNTER 2022-03-15 13:26 | Emergency (ER) | payer OTHER ==
[2022-03-15] MEDS ORDERED: Lorazepam 2 MG/ML VIAL ONE (13:43)
[2022-03-15 14:14] LABS: #Lymphocytes 2.4 thou/uL (1.20-3.40); #Monocytes 0.7 thou/uL (0.11-0.59); %Basophils 0.2 % (0.0-1.0); %Eosinophils 0.2 % (0.0-10.0); %Lymphocytes 21.6 % (21.0-51.0); %Monocytes 5.8 % (0.0-10.0); %Neutrophils 72.2 % (42.0-75.0); Hemoglobin 12.2 g/dL (12.0-16.0); Mean Corpuscular HGB CONC 32.9 g/dL (32.0-36.0); Mean Corpuscular Hemoglobin 30.6 pg (27.0-31.0); Mean Platelet Volume 8.8 fL (7.4-10.4); Platelet Count 224 thou/uL (130-400); RBC Distribution Width 17.7 % (11.5-14.5); Red Blood Cell (RBC) Count 3.98 mill/uL (4.20-5.40); White Blood Cell (WBC) Count 11.1 thou/uL (4.8-10.8)
[2022-03-15 14:35] LABS: ALT (SGPT) 27 U/L (8-55); AST (SGOT) 21 U/L (5-34); Albumin 4.1 g/dL (3.5-5.0); Alkaline Phosphatase 44 U/L (40-110); Anion Gap 12 mmol/L (10-20); BUN (Urea Nitrogen) 7 mg/dL (7.0-18.7); Bilirubin, Total 0.4 mg/dL (0.2-1.2); CK (CPK) 44 U/L (29-168); Calc. Creatinine Clearance 0 mL/min (70-130); Calcium 8.9 mg/dL (7.8-10.44); Carbon Dioxide 22 mmol/L (22-29); Chloride 109 mmol/L (98-107); Globulin 2.3 g/dL (2.4-3.5); Glucose 92 mg/dL (70-105); Magnesium 1.9 mg/dL (1.6-2.6); Potassium 4.2 mmol/L (3.5-5.1); Protein, Total 6.4 g/dL (6.0-8.3); Sodium 139 mmol/L (136-145)
[2022-03-15] MEDS ORDERED: diphenhydrAMINE 50 MG/ML VIAL ONE (15:15)
[2022-03-15] MEDS ORDERED: Metoclopramide HCl 10 MG/2 ML VIAL ONE (15:15)
[2022-03-15] MEDS ORDERED: Acetaminophen 500 MG TAB ONE (15:15)
[2022-03-15] MEDS ORDERED: Ondansetron PF 4 MG/2 ML Vial ONE (15:15)
== END 2022-03-15 16:38 | disposition home or self-care (01) ==
LOC: ERS 13:26
DX: I77.3 Arterial fibromuscular dysplasia (principal); M62.838 Other muscle spasm; Z86.73 Personal history of transient ischemic attack (TIA), and cerebral infarction without residual deficits; Z87.891 Personal history of nicotine dependence; Z79.899 Other long term (current) drug therapy; Z79.82 Long term (current) use of aspirin
CPT/HCPCS: 36415; 71045; 80053; 82550; 83735; 84484; 85025; 93005; 94760; 96374; 96375; J1200; J2060; J2405; J2765